=== PATIENT | male | born 1995 | race Caucasian/White ===

== ENCOUNTER 2019-05-01 00:25 | Emergency (ER) | payer SELFPAY ==
[2019-05-01] VITALS (15 sets, daily range): BP systolic 115–145; BP diastolic 55–88; PULSE 62–91; RESP 11–29; TEMP 36.6; O2SAT 97–99
--- NOTE | ~2019-05-01 | XR_ITS ---
EXAMINATION: XR chest 2V DATE: 05/01/2019 01:49 INDICATION: Chest pain. TECHNIQUE: Frontal and lateral views of the chest were obtained. COMPARISON: None. FINDINGS: The chest demonstrates clear lungs without pneumonia, pleural effusion, or pneumothorax. Th e heart size is normal. IMPRESSION: 1. No acute cardiopulmonary disease. Reviewed, dictated and finalized at location A. IDENTIAL SUPPORT SPECIALIST
--- NOTE | 2019-05-01 00:30 | ECG_ITS ---
Measurements Intervals [place] Rate: 68 P: 18 OK: 158 QRS: 0 QRSD: 89 T: 1 QT: 377 QTc: 403 Interpretive Statements SINUS RHYTHM WITH MARKED SINUS ARRHYTHMIA BORDERLINE T WAVE ABNORMALITY- INFERIOR LEADS BORDERLINE ECG Electronically Signed On 05-01-2019 6:47:06 APPLICATIONS PROGRAMMER by Mateus Cortes D.O.
[2019-05-01 00:59] LABS: Prothrombin Time 12.4 Seconds (11.1-14.7)
[2019-05-01 01:00] LABS: Partial Thromboplastin Time 33.7 SECONDS (22.3-36.8)
[2019-05-01 01:03] LABS: Blood Urea Nitrogen 18 mg/dL (9-20); Calcium 9.2 mg/dL (8.4-10.2); Carbon Dioxide 26 mmol/L (22-30); Chloride 104 mmol/L (98-107); Estimated CRCL calculation 118 ml/min; Estimated Glomerular Filt Rate > 60; Glucose 93 mg/dL (75-110); Potassium 3.6 mmol/L (3.4-5.0); Sodium 137 mmol/L (137-145)
[2019-05-01 01:11] LABS: Basophils Absolute Auto 0.1 K/mm3 (0.0-0.1); Eosinophils Absolute Auto 0.4 K/mm3 (0-0.3); Eosinophils Percent Auto 4.6 % (0-4.4); Hematocrit 42.9 % (42.0-52.0); Hemoglobin 14.7 g/dL (14.0-18.0); Immature Granulocyte Absolute 0.05 K/mm3 (0.00-0.031); Immature Granulocyte Percent A 0.6 % (0-0.5); Lymphocytes Absolute Auto 2.56 K/mm3 (0.9-3.2); Mean Corpuscular HGB Conc 34.3 g/dl (32-36); Mean Corpuscular Hemoglobin 29.8 pg (26-34); Neutrophils Percent Auto 49.8 % (45.5-73.1); Platelet Count Result 272 k/mm3 (150-375); Red Blood Count 4.93 M/mm3 (4.6-6.20); Red Cell Distribution Width 12.6 % (11.5-14.5)
[2019-05-01 01:15] LABS: Troponin I < 0.012 ng/mL (0.000-0.034)
[2019-05-01] MEDS: ASPIRIN 81 MG CHEWABLE TABLET 324 MG PO (02:05)
--- NOTE | 2019-05-01 02:27 | ED.CHESTPAIN ---
HPI - Chest Pain General Chief Complaint: Chest Pain Stated Complaint: CP, ARM AND LEG PAINS Time Seen by Provider: 05/01/19 02:15 Source: patient and RN notes reviewed Mode of arrival: ambulatory Limitations: no limitations History of Present Illness HPI narrative: Pt is a 23 y/o male who presents to the ED with c/o lt sided chest pain starting around 23:00 yesterday. He notes that he typically consumes energy drinks as well as stimulatory pre-workout supplements. Pt states that he last drank an energy drink around 16:00-17:00 yesterday afternoon. He notes that he developed pain in the lt side of his chest while laying down later this evening. Pt reports palpitations and SOB accompanying his pain, but states that these symptoms resolved 30-45 minutes ago. He notes that his heart felt as though it was racing. Pt states that his symptoms felt similar to previous panic attacks. He also reports a recent cough, but denies any lightheadedness, diaphoresis, dizziness, rhinorrhea, or sore throat. MD complaint: chest pain Onset (ago): hour(s) (3) Timing of current episode: now resolved Onset: during rest Pain location: left chest Associated symptoms: dyspnea (resolved), palpitations (resolved) and cough Treatment prior to arrival: none Related Data Allergies Allergy/AdvReac Type Severity Reaction Status Date / Time No Known Allergies Allergy Verified 05/01/19 02:04 Review of Systems Review of Systems: All systems reviewed & are unremarkable except as noted in HPI and below ENT: Denies nasal discharge and Denies sore throat Cardiovascular: Cardiovascular: Reports chest pain (lt sided chest pain (resolved)), Denies diaphoresis and Reports palpitations (resolved) Respiratory: Respiratory: Reports cough and Reports dyspnea (resolved) Neurologic: Denies dizziness and Denies other (lightheadedness) PMFSH Past Medical History Medical History Anxiety Panic attacks Surgical History Surgical History No significant past surgical history Social History Social History Smoking status: Unknown if ever smoked Gender identity (if verbalized by the patient): Male Exam Narrative: Exam Narrative: GENERAL: Well-appearing, well-nourished, and in no acute distress. HEAD: Normocephalic, atraumatic NOSE: Nares clear, no rhinorrhea or epistaxis THROAT:Mucous membranes moist, Oropharynx normal without erythema, exudate, peritonsillar swelling or fluctuance NECK: Supple, without lymphadenopathy or mass RESPIRATORY: No respiratory distress, Airway patent, Respirations non-labored, Clear to auscultation without rales, rhonchi or wheeze HEART: Regular rate and rhythm. No murmur heard. Normal peripheral pulses. ABDOMEN: Soft, nontender, nondistended, normal active bowel sounds. No masses. No rebound or guarding, No organomegaly. EXTREMITIES: No edema, normal strength with full range of motion. SKIN: Warm, dry, normal color without rash NEURO: Alert and oriented x3. CN 2-12 grossly intact. No focal deficits. PSYCH: Normal mood and affect. Course Reevaluation(s) Reevaluation #1: Patient has been asymptomatic in ER . This may be anxiety. PERC negative Date: 05/01/19 Time: 05:17 Vital Signs Vital signs: Vital Signs Temperature 97.9 F 05/01/19 00:32 Pulse Rate 86 05/01/19 00:32 Respiratory Rate 18 05/01/19 00:32 Blood Pressure 145/88 H 05/01/19 00:32 Pulse Oximetry 98 05/01/19 00:32 Temperature 97.9 F 05/01/19 00:32 Pulse Rate 68 05/01/19 04:15 Respiratory Rate 24 H 05/01/19 04:15 Blood Pressure 117/69 05/01/19 03:00 Pulse Oximetry 98 05/01/19 04:15 MDM - Chest Pain Lab Data Attestation: I reviewed the patient's lab results. Result diagrams: 05/01/19 00:41 05/01/19 00:41 Labs: Lab Results 05/01/19 05/01/19 0
[2019-05-01 05:09] LABS: Troponin I < 0.012 ng/mL (0.000-0.034)
== END 2019-05-01 05:50 | disposition home or self-care (01) ==
PROVIDERS: Emergency Provider General Practice
DX: R07.89 Other chest pain (principal); R94.31 Abnormal electrocardiogram [ECG] [EKG]
CPT/HCPCS: 36415; 71046; 80048; 84484; 85025; 85610; 85730; 93005; 99284; A9270

== ENCOUNTER 2021-08-28 09:33 | Emergency (ER) | payer BC, SELFPAY ==
--- NOTE | ~2021-08-28 | XR_ITS ---
XR elbow LT 2V DATE: 08/28/2021 10:25 INDICATION: Left elbow injury, pain TECHNIQUE: AP and lateral views COMPARISON: None FINDINGS: No fracture or dislocation or joint effusion. No periosteal reaction or bone destruction. IMPRESSION: Negative Reviewed, dictated and finalized at location A. IMPRESSION: Negative
[2021-08-28 09:38] VITALS: BP 147/105; PULSE 97; RESP 18; TEMP 36.4; O2SAT 100
--- NOTE | 2021-08-28 10:18 | ED.UPPEXIN ---
HPI - Extremity Injury (Upper) General Chief Complaint: Extremity Injury, Upper Stated Complaint: LEFT ELBOW INJURY Time Seen by Provider: 08/28/21 10:11 History of Present Illness HPI narrative: Patient is a 25-year-old male here for evaluation of left elbow pain over the past day. Patient states yesterday he was working out doing bicep curls when he noted a pain in his anterior left elbow. States that the pain is there all the time, but is worse with movement, particularly flexion of the elbow. Has been using icy hot and ibuprofen with with mild relief; last took ibuprofen yesterday. Denies hearing a pop, numbness, tingling, weakness. Related Data Allergies Allergy/AdvReac Type Severity Reaction Status Date / Time No Known Allergies Allergy Verified 05/01/19 02:04 Review of Systems Review of Systems: Gen.: Denies fevers or chills Eyes: Denies eye pain or visual change ENT: Denies congestion Respiratory: Denies shortness of breath or cough CV: Denies chest pain or palpitations GI: Denies abdominal pain nausea, emesis or diarrhea denies burning, urgency, frequency or hematuria Musculoskeletal: Reports left elbow pain. Denies back pain or muscle pain Neuro: Denies numbness, tingling, weakness or focal weakness Skin: Denies rash Except as documented, all other systems reviewed and negative [facility] Past Medical History Medical History (Updated 08/28/21 @ 10:50 by Ara Segovia PA-C) Anxiety Panic attacks Surgical History Surgical History No significant past surgical history Social History Social History Smoking status: Unknown if ever smoked Gender identity (if verbalized by the patient): Male Exam Narrative: Gen: Alert, oriented, no acute distress Eyes: EOMI, no icterus Pulm: Respirations even and unlabored, symmetric thorax expansion, no audible stridor or visible cyanosis CV: Regular rate per telemetry GI: No distension, no voluntary/involuntary guarding Neuro: 2+ radial pulses bilaterally. Sensation intact over bilateral hands, 5 out of 5 strength in bilateral upper extremities. AOx4, moves all extremities without apparent difficulty or weakness, follows commands MSK: No bony tenderness along olecranon, humerus, radius or ulna. Full range of motion in left arm without pain. Good strength with arm flexion and extension. Bicep tendon reflex intact. No ecchymosis. Skin: No jaundice, no visible bruising, rashes, lesions or wounds on exposed skin Psych: Normal mood/affect, insight/judgement good, adequate fund of knowledge, recent/remote memory intact Course Vital Signs Vital signs: Vital Signs Temperature 97.6 F 08/28/21 09:38 Pulse Rate 97 08/28/21 09:38 Respiratory Rate 18 08/28/21 09:38 Blood Pressure 147/105 H 08/28/21 09:38 Pulse Oximetry 100 08/28/21 09:38 Oxygen Delivery Room Air 08/28/21 09:38 Temperature 97.6 F 08/28/21 09:38 Pulse Rate 97 08/28/21 09:38 Respiratory Rate 18 08/28/21 09:38 Blood Pressure 147/105 H 08/28/21 09:38 Pulse Oximetry 100 08/28/21 09:38 Oxygen Delivery Room Air 08/28/21 09:38 MDM - Extremity Injury (Upper) MDM Narrative Medical decision making narrative: 25-year-old male here for evaluation of left elbow pain since working out 2 days ago. He is neurovascularly intact distally, his plain films are negative for acute fracture. Likely a strain of his bicep muscle. Advised supportive measures and following up with a primary care provider. Discussed return precautions with patient, he voiced understanding. Discharge Plan Discharge Clinical Impression: Elbow pain Patient Disposition: Home, Self-Care Condition: Stable Instructions: Antibiotic Form, Elbow Sprain (ED) Additional Instructions: Your x-ray was negative for fracture. You may have a strain of the biceps muscle. Alternate between Tylenol and
[2021-08-28] MEDS: ACETAMINOPHEN 500 MG TABLET 1000 MG PO (10:59)
[2021-08-28] MEDS: IBUPROFEN 400 MG TABLET 800 MG PO (11:00)
== END 2021-08-28 11:04 | disposition home or self-care (01) ==
PROVIDERS: Emergency Provider Emergency Medicine
DX: M25.522 Pain in left elbow (principal)
CPT/HCPCS: 73070; 99283; A9270

== ENCOUNTER 2022-05-25 20:41 | Emergency (ER) | payer BC, SELFPAY ==
--- NOTE | ~2022-05-25 | XR_ITS ---
EXAMINATION: XR chest 2V DATE: 05/25/2022 21:01 INDICATION: Cough and shortness of breath TECHNIQUE: PA and lateral views of the chest are obtained. COMPARISON: 05/01/2019 FINDINGS: The lungs are free of acute opacities. No pleural effusion or pneumothorax. The cardiomedia stinal silhouette is normal. The visualized bones and soft tissues are unremarkable. IMPRESSION: 1. No acute cardiopulmonary abnormality. Reviewed, dictated and finalized at location F.
[2022-05-25 20:51] VITALS: BP 151/99; PULSE 105; RESP 18; TEMP 36.6; O2SAT 99
[2022-05-25 20:53] VITALS: O2SAT 99
--- NOTE | 2022-05-25 21:04 | ED.URI ---
HPI - URI/Sore Throat General Chief Complaint: Upper Respiratory Infection Stated Complaint: Covid exposure, cough, congestion Time Seen by Provider: 05/25/22 20:45 History of Present Illness HPI Narrative: Patient is a 26-year-old healthy male here for evaluation of cough, congestion and sore throat x2 days. His has COVID. He has not yet taken a home COVID test. He is not vaccinated against COVID. He denies any chest pain, shortness of breath, fevers or chills, nausea or vomiting or leg swelling. Attempted ibuprofen at home with good relief of his symptoms. Related Data Allergies Allergy/AdvReac Type Severity Reaction Status Date / Time No Known Allergies Allergy Verified 05/25/22 20:42 Review of Systems Review of Systems: Gen.: Denies fevers or chills Eyes: Denies eye pain or visual change ENT: Reports congestion and sore throat Respiratory: Reports cough CV: Denies chest pain or palpitations GI: Denies abdominal pain nausea, emesis or diarrhea denies burning, urgency, frequency or hematuria Musculoskeletal: Denies back pain or muscle pain Neuro: Denies numbness, tingling, weakness or focal weakness Skin: Denies rash Except as documented, all other systems reviewed and negative [facility] Past Medical History Medical History (Updated 05/25/22 @ 21:40 by Ara Segovia PA-C) Anxiety Panic attacks Surgical History Surgical History No significant past surgical history Social History Social History Smoking status: Unknown if ever smoked Gender identity (if verbalized by the patient): Male Exam Narrative: APPEARANCE: Well appearing, no pain in distress, well-nourished. Head: Normocephalic and atraumatic. EYES: PERRLA/EOMI, conjunctivae clear NOSE: No nasal drainage EARS: External ear normal in appearance THROAT: Oropharynx is clear. Mucous membranes are moist. NECK: Supple. No adenopathy, no masses. RESPIRATORY: Airway patent, respirations nonlabored. Clear to auscultation bilaterally, no rales, rhonchi, wheezing. CARDIOVASCULAR: Regular rate and rhythm without murmurs, rubs, or gallops. ABDOMINAL: Normoactive bowel sounds. Soft, nontender, nondistended. No rebound tenderness or guarding. MUSCULOSKELETAL: Extremities are warm and well-perfused. Moves all extremities well. No edema. NEURO: Normal speech. No focal neurologic deficits. SKIN: Skin is warm and dry. No rashes. PSYCHIATRIC: Normal affect/mood. Course Vital Signs Vital signs: Vital Signs Temperature 97.9 F 05/25/22 20:51 Pulse Rate 105 H 05/25/22 20:51 Respiratory Rate 18 05/25/22 20:51 Blood Pressure 151/99 H 05/25/22 20:51 Pulse Oximetry 99 05/25/22 20:51 Temperature 98 F 05/25/22 21:45 Pulse Rate 69 05/25/22 21:45 Respiratory Rate 18 05/25/22 21:45 Blood Pressure 145/89 H 05/25/22 21:45 Pulse Oximetry 99 05/25/22 21:45 Oxygen Delivery Room Air 05/25/22 20:53 MDM - URI/Sore Throat MDM Narrative Medical decision making narrative: 26-year-old healthy male here due to upper respiratory infectious symptoms over the past few days with a positive exposure to COVID. He is not vaccinated. He is nontoxic in appearance and has normal vital signs, no hypoxia. His heart and lungs are clear to auscultation. His COVID test is positive today. Chest x-ray is clear. He is appropriate for outpatient management, no indication for antivirals at this time. Return precautions were discussed and he voiced understanding. Lab Data Labs: Lab Results 05/25/22 Range/Units 20:52 SARS-CoV-2 RNA (RT-PCR) Positive A Discharge Plan Discharge Clinical Impression: COVID-19 Patient Disposition: Home, Self-Care Condition: Stable Instructions: Antibiotic Form, COVID-19 (Coronavirus Disease 2019) (ED) Additional Instructions: Your COVID test is positive today which lik
[2022-05-25 21:32] LABS: SARS-CoV-2 RNA PCR Positive
[2022-05-25 21:45] VITALS: BP 145/89; PULSE 69; RESP 18; TEMP 36.6; O2SAT 99
== END 2022-05-25 21:45 | disposition home or self-care (01) ==
PROVIDERS: Emergency Provider Physician Assistant; PCP Nurse Practitioner Family
DX: U07.1 COVID-19 (principal); Z28.310 Unvaccinated for COVID-19
CPT/HCPCS: 71046; 99283; U0003; U0005

== ENCOUNTER 2023-07-17 23:17 | Emergency (ER) | payer BC, SELFPAY ==
--- NOTE | ~2023-07-17 | XR_ITS ---
Right Hand Technique: PA, oblique, and lateral views were obtained. Clinical History: Injury Findings: No acute fracture or dislocation is seen. Osseous alignment is anatomic. Joint spaces are p reserved. Soft tissues are unremarkable. Impression: Unremarkable right hand. Reviewed, dictated and finalized at location M. Impression: Unremarkable right hand.
[2023-07-17 23:18] VITALS: BP 140/92; PULSE 114; RESP 20; TEMP 37.2; O2SAT 98
--- NOTE | 2023-07-18 01:44 | ED.GENADULT ---
[facility] - General Adult General Chief complaint: Extremity Injury, Upper Stated complaint: R hand injury Time Seen by Provider: 07/18/23 01:37 Source: patient Mode of arrival: ambulatory Limitations: no limitations History of Present Illness HPI narrative: This is a 27-year-old male who presents to the ED with chief complaint of right hand pain after punching a wall twice this evening. Patient reports he was upset and ended up punching the wall repeatedly. States that the pain radiates for ulnar side of the right wrist to the right elbow. Denies any further sites of pain or injury. Denies numbness or weakness Related Data Allergies Allergy/AdvReac Type Severity Reaction Status Date / Time No Known Allergies Allergy Verified 07/18/23 01:28 Review of Systems Review of Systems: All systems as dictated in [facility] Past Medical History Medical History (Updated 07/18/23 @ 01:48 by Jeramy Boyce PA-C) Anxiety Panic attacks Surgical History Surgical History No significant past surgical history Social History Social History Smoking status: Unknown if ever smoked Gender identity (if verbalized by the patient): Male Exam Narrative: GENERAL: Well-appearing, well-nourished, and in no acute distress. MSK: Right hand: Mild tenderness to the 4th 5th metacarpals. No bruising or swelling. Able to make a fist and squeeze my fingers. Neurovascular intact distally. Left hand: Benign SKIN: Warm, dry, no rash. NEURO: Alert and oriented x4. No focal deficits. PSYCH: Normal mood and affect. Course Vital Signs Vital signs: Vital Signs Temperature 99.0 F 07/17/23 23:18 Pulse Rate 114 H 07/17/23 23:18 Respiratory Rate 20 07/17/23 23:18 Blood Pressure 140/92 H 07/17/23 23:18 Pulse Oximetry 98 07/17/23 23:18 Oxygen Delivery Room Air 07/17/23 23:18 Temperature 99.0 F 07/17/23 23:18 Pulse Rate 114 H 07/17/23 23:18 Respiratory Rate 20 07/17/23 23:18 Blood Pressure 140/92 H 07/17/23 23:18 Pulse Oximetry 98 07/17/23 23:18 Oxygen Delivery Room Air 07/17/23 23:18 Medical Decision Making MDM Narrative Medical decision making narrative: This is a 27-year-old male who presents to the ED with chief complaint of right hand pain after punching a wall tonight. Vitals are normal. Exam shows mild tenderness to the right metacarpals but no bruising or significant swelling. No deformity. Neurovascularly intact distally. No anatomical snuffbox tenderness Right hand wrist x-rays preliminarily show no acute fracture. Consistent with wrist sprain. Pt will be discharged in stable condition. Return precautions given and supportive measures discussed. Pt is understanding and agreeable with plan for discharge and follow-up with PCP. Vital Signs Vital Signs: Vital Signs Temperature 99.0 F 07/17/23 23:18 Pulse Rate 114 H 07/17/23 23:18 Respiratory Rate 20 07/17/23 23:18 Blood Pressure 140/92 H 07/17/23 23:18 Pulse Oximetry 98 07/17/23 23:18 Oxygen Delivery Room Air 07/17/23 23:18 Temperature 99.0 F 07/17/23 23:18 Pulse Rate 114 H 07/17/23 23:18 Respiratory Rate 20 07/17/23 23:18 Blood Pressure 140/92 H 07/17/23 23:18 Pulse Oximetry 98 07/17/23 23:18 Oxygen Delivery Room Air 07/17/23 23:18 Discharge Plan Discharge Clinical Impression: Sprain and strain of wrist Patient Disposition: Home, Self-Care Condition: Stable Instructions: Antibiotic Form Additional Instructions: Your exam and imaging today are reassuring overall. No evidence of any obvious fracture. Please use Janes wrap and [id number] wrist brace as needed for strain/sprain. Follow-up with your doctor. Take regular Tylenol and ibuprofen for pain control. If you have any new or worsening symptoms please return to the ER for further evaluation.
== END 2023-07-18 01:57 | disposition home or self-care (01) ==
PROVIDERS: Emergency Provider Physician Assistant; PCP Nurse Practitioner Family
DX: S63.501A Unspecified sprain of right wrist, initial encounter (principal); W22.01XA Walked into wall, initial encounter
CPT/HCPCS: 73130; 99283

== ENCOUNTER 2023-07-31 08:10 | Outpatient (CLI) | payer BC, SELFPAY ==
--- NOTE | ~2023-07-31 | XR_ITS ---
Right Hand Technique: PA, oblique, and lateral views were obtained. Clinical History: Fifth metacarpal pain Findings: No acute fracture or dislocation is seen. Osseous alignment is anatomic. Joint spaces are p reserved. Soft tissues are unremarkable. Impression: Unremarkable right hand. Reviewed, dictated and finalized at location . Impression: Unremarkable right hand.
== END 2023-07-31 08:11 | disposition home or self-care (01) ==
PROVIDERS: PCP Nurse Practitioner Family; Visit Provider Nurse Practitioner Family
DX: M79.641 Pain in right hand (principal)
CPT/HCPCS: 73130